=== PATIENT | female | born 1945 | race Two or more races ===

== ENCOUNTER → 2019-09-08 | Outpatient (CLI) | payer MEDICARE, OTHER ==
--- NOTE | 2019-09-08 12:54 | RADIOLOGY REPORT (SQ) ---
EXAM DESCRIPTION: CT ABD/PELVIS WITH IV ORAL COMPLETED DATE/TIME: 09/08/2019 11:14 am REASON FOR STUDY: PELVIC AND PERINEAL PAIN (R10.2) R10.2 PELVIC AND PERINEAL PAIN COMPARISON: None. TECHNIQUE: CT scan of the abdomen and pelvis performed using helical scanning technique with dynamic intravenous contrast injection. Oral contrast. Images reviewed with lung, soft tissue, and bone win dows. Reconstructed coronal and sagittal MPR images reviewed. Delayed images for evaluation of the ur inary system also acquired. All images stored on PACS. All CT scanners at this facility use dose modulation, iterative reconstruction, and/or weight based d osing when appropriate to reduce radiation dose to as low as reasonably achievable (ALARA). [facility]: Dose Right [facility]: CareDose [facility]: Dose Right [facility]: Teradose 4D [facility]: H-umus CONTRAST TYPE AND DOSE: contrast/concentration: Isovue 350.00 mg/ml; Total Contrast Delivered: 80.0 ml; Total Saline Delivered: 55.0 ml RENAL FUNCTION: Creatinine 1 RADIATION DOSE: CT Rad equipment meets quality standard of care and radiation dose reduction techniq ues were employed. CTDIvol: 11.8 - 13.6 mGy. DLP: 1254 mGy-cm.. LIMITATIONS: None. FINDINGS: LOWER CHEST: No significant findings. No nodules or infiltrates. LIVER: Normal size. No masses. No dilated ducts. SPLEEN: Normal size. No focal lesions. PANCREAS: No masses. No significant calcifications. No adjacent inflammation or peripancreatic fluid collections. Pancreatic duct not dilated. GALLBLADDER: Surgically absent. ADRENAL GLANDS: No significant masses or asymmetry. RIGHT KIDNEY AND URETER: No solid masses. No significant calcifications. No hydronephrosis or hyd roureter. LEFT KIDNEY AND URETER: No solid masses. No significant calcifications. No hydronephrosis or hydr oureter. AORTA AND VESSELS: No aneurysm. No dissection. Renal arteries, SMA, celiac without stenosis. RETROPERITONEUM: No retroperitoneal adenopathy, hemorrhage or masses. BOWEL AND PERITONEAL CAVITY: No masses or inflammatory changes. No free fluid or peritoneal masses. APPENDIX: Surgically absent. PELVIS: No mass. No free fluid. Normal bladder. ABDOMINAL WALL: There is 71 x 38 x 55 mm fluid collection anterior to the right external iliac/femora l artery and vein. BONES: No significant or acute findings. OTHER: No other significant finding. IMPRESSION: There is a fluid collection in the right groin. Possible seroma. Possible hematoma. D oes not appear to represent pseudoaneurysm. TECHNICAL DOCUMENTATION: JOB ID: [id number] Quality ID # [id number]: Final reports with documentation of one or more dose reduction techniques (e.g., Au tomated exposure control, adjustment of the mA and/or kV according to patient size, use of iterative reconstruction technique) 2010 [employer]- All Rights Reserved Reading location - IP/workstation name: [email or web address]
== END ==
LOC: RAD 09:36
PROVIDERS: ATTEND Surgery
DX: R10.2 Pelvic and perineal pain (principal)
CPT/HCPCS: 74177; 82565

== ENCOUNTER 2020-09-29 09:33 | Emergency (ER) | payer MEDICARE, OTHER ==
[2020-09-29] MEDS ORDERED: NORMAL SALINE 1000 ML 1,000 ML IV ONE (10:30)
[2020-09-29 10:32] LABS: ABSOLUTE EOSINOPHILS # (AUTO) 0.1 10^3/uL (0.0-0.6); ABSOLUTE LYMPHOCYTES (AUTO) 0.9 10^3/uL (0.5-4.7); ABSOLUTE MONOCYTES (AUTO) 0.4 10^3/uL (0.1-1.4); ABSOLUTE NEUT (AUTO) 3.3 10^3/uL (1.7-8.2); BASOPHILS % (AUTO) 0.8 % (0-2); EOSINOPHILS % (AUTO) 2.5 % (0-6); HEMATOCRIT 32.6 % (36.0-47.0); HEMOGLOBIN 11.2 g/dL (12.0-15.5); LYMPHOCYTES % (AUTO) 18.9 % (13-45); MEAN CORPUSCULAR HEMOGLOBIN 27.7 pg (27.0-33.4); MEAN CORPUSCULAR HGB CONC 34.2 g/dL (32.0-36.0); MEAN CORPUSCULAR VOLUME 81 fl (80-97); MONOCYTES % (AUTO) 7.9 % (3-13); PLATELET COUNT 189 10^3/uL (150-450); RED BLOOD COUNT 4.03 10^6/uL (3.72-5.28); SEGMENTED NEUTROPHILS % (AUTO) 69.9 % (42-78); TOTAL CELLS COUNTED % (AUTO) 100 %; WHITE BLOOD COUNT 4.7 10^3/uL (4.0-10.5)
[2020-09-29 10:40] LABS: ALBUMIN 3.3 g/dL (3.5-5.0); ALKALINE PHOSPHATASE 80 U/L (38-126); ANION GAP 8 (5-19); ASPARTATE AMINO TRANSFERASE 20 U/L (14-36); BILIRUBIN,DIRECT 0.3 mg/dL (0.0-0.4); BILIRUBIN,TOTAL 0.6 mg/dL (0.2-1.3); BLOOD UREA NITROGEN 21 mg/dL (7-20); CARBON DIOXIDE 24 mmol/L (22-30); CHLORIDE 104 mmol/L (98-107); CREATINE KINASE 53 U/L (30-135); GLUCOSE 185 mg/dL (75-110); POTASSIUM 4.4 mmol/L (3.6-5.0); TOTAL PROTEIN 5.5 g/dL (6.3-8.2)
[2020-09-29 10:50] LABS: CREATINE KINASE MB 0.76 ng/mL (<4.55)
[2020-09-29 10:51] LABS: TROPONIN I < 0.012 ng/mL
--- NOTE | 2020-09-29 12:50 | ER Document Report ---
Entered by JUAN PULIDO SCRIBE 09/29/20 1113 Acting as scribe for:LAW JACK MD ED General - General Chief Complaint: Overdose Stated Complaint: POSSIBLE OVERDOSE Time Seen by Provider: 09/29/20 10:59 Primary Care Provider: SHARONA ARBOLEDA MD [Primary Care Provider] - Follow up as needed Mode of Arrival: Medic Information source: Patient Notes: This 75 year old female patient with a history of hypertension and hyperlipidemia presents to the ED today via EMS with complaints of dizziness and weakness that started after accidentally taking her 's 4 mg tablet of Doxazosin prior to arrival. Patient states that she took all of her morning medications and mistook the Doxazosin as her own because it was near her medications. Patient was hypotensive with EMS and received 500 ml LR. TRAVEL OUTSIDE OF THE [place] IN LAST 30 DAYS: No - Related Data Allergies/Adverse Reactions: No Known Allergies Allergy (Unverified 09/29/20 11:24) Home Medications: apsirin, meloxicam, omeprazole, telmisartan, oxybutynin Past Medical History - General Information source: Patient - Social History Smoking Status: Former Smoker - quit x15 years ago Cigarette use (# per day): No Chew tobacco use (# tins/day): No Smoking Education Provided: No Frequency of alcohol use: Occasional Drug Abuse: None Lives with: Spouse/Significant other Family History: Reviewed & Not Pertinent Patient has suicidal ideation: No Patient has homicidal ideation: No - Past Medical History Cardiac Medical History: Reports: Hx Hypercholesterolemia, Hx Hypertension Renal/ Medical History: Reports: Other - Hx Urinary Incontinence GI Medical History: Reports: Hx Gastroesophageal Reflux Disease Musculoskeletal Medical History: Reports Hx Arthritis Past Surgical History: Reports: Hx Appendectomy, Hx Cholecystectomy, Hx Coronary Stent, Hx Orthopedic Surgery - Right total knee replacement, Hx Vascular Surgery - Thoracic aorta aneurysm repair Review of Systems - Review of Systems Constitutional: See HPI, Weakness EENT: No symptoms reported Cardiovascular: See HPI, Dizziness Respiratory: No symptoms reported Gastrointestinal: No symptoms reported Genitourinary: No symptoms reported Female Genitourinary: No symptoms reported Musculoskeletal: No symptoms reported Skin: No symptoms reported Hematologic/Lymphatic: No symptoms reported Neurological/Psychological: No symptoms reported -: Yes All other systems reviewed and negative Physical Exam - Vital signs Vitals: Resp 25 H 09/29/20 09:34 - General General appearance: Alert In distress: None - HEENT Head: Normocephalic, Atraumatic Eyes: Normal Pupils: PERRL - Respiratory Respiratory status: No respiratory distress Chest status: Nontender Breath sounds: Normal Chest palpation: Normal - Cardiovascular Rhythm: Regular Heart sounds: Normal auscultation Murmur: No Friction rub: No Gallop: None auscultated - Abdominal Inspection: Obese Distension: No distension Bowel sounds: Normal Tenderness: Nontender - Abdomen soft Organomegaly: No organomegaly - Back Back: Normal, Nontender - Extremities General upper extremity: Normal inspection General lower extremity: Normal inspection. No: Edema - Neurological Neuro grossly intact: Yes Orientation: AAOx4 Nicho Coma Scale Eye Opening: Spontaneous [place] Coma Scale Verbal: Oriented [place] Coma Scale Motor: Obeys Commands [place] Coma Scale Total: 15 - Psychological Associated symptoms: Normal affect, Normal mood - Skin Skin Temperature: Warm Skin Moisture: Dry Skin Color: Normal Course - Re-evaluation Re-evalutation: 09/29/20 12:52 The patient's BUN was elevated at 21 with normal creatinine. She has had 2 L of IV fluid so far. She states she has been up to urinate twice and had no difficulties walking to the restroom. We will have her stand up and check blood pressure and pulse and then decide on discharge. 09/29/20 12:59 Orthostatic BP showed a standing blood pressure 124 systolic without increasing heart rate, and patient was asymptomatic. She is anxious to go home. - Vital Signs Vital signs: Temp Pulse Resp BP Pulse Ox 98.8 F 16 106/45 L 100 09/29/20 10:01 09/29/20 11:01 09/29/20 11:01 09/29/20 11:01 - Laboratory Result Diagrams: 09/29/20 09:45 09/29/20 09:45 Laboratory results interpreted by me: 09/29/20 09/29/20 09:45 09:45 Hgb 11.2 L Hct 32.6 L Sodium 135.6 L BUN 21 H Est GFR (MDRD) Non-Af 55 L Glucose 185 H Total Protein 5.5 L Albumin 3.3 L Discharge - Discharge Clinical Impression: Drug ingestion, accidental Qualifiers: Encounter type: initial encounter Qualified Code(s): T50.901A - Poisoning by unspecified drugs, medicaments and biological substances, accidental (unintentional), initial encounter Hypotension Qualifiers: Hypotension type: hypotension due to drug Qualified Code(s): I95.2 - Hypotension due to drugs Condition: Stable Disposition: HOME, SELF-CARE Additional Instructions: Your accidental ingestion of your spouse's blood pressure/heart medication cause your blood pressure to drop to a dangerously low level. You were also a little dehydrated which contributed to the fall and the blood pressure. At this time the medication has worn off enough that your blood pressure is stable and it is safe for you to return home. RETURN TO THE EMERGENCY ROOM IF ANY NEW OR WORSENING SYMPTOMS. Referrals: SHARONA ARBOLEDA MD [Primary Care Provider] - Follow up as needed I personally performed the services described in the documentation, reviewed and edited the documentation which was dictated to the scribe in my presence, and it accurately records my words and actions.
[2020-09-29 13:05] VITALS: BP 132/69
== END 2020-09-29 13:16 | disposition home or self-care (01) ==
LOC: ER 09:33
DX: T44.6X1A Poisoning by alpha-adrenoreceptor antagonists, accidental (unintentional), initial encounter (principal); I95.2 Hypotension due to drugs; R53.1 Weakness; R42 Dizziness and giddiness; I10 Essential (primary) hypertension; R32 Unspecified urinary incontinence; K21.9 Gastro-esophageal reflux disease without esophagitis; Z79.899 Other long term (current) drug therapy; Z79.82 Long term (current) use of aspirin; Z79.1 Long term (current) use of non-steroidal anti-inflammatories (NSAID); Z95.5 Presence of coronary angioplasty implant and graft
CPT/HCPCS: 99284; 96360; 36415; 82553; 82550; 85025; 80053; 84484; J7030